=== PATIENT | female | born 1990 | race Caucasian/White ===

== ENCOUNTER 2017-03-10 16:54 | Emergency (ER) | payer BC, OTHER ==
[~2017-03-10] VITALS: Ht 172.7 cm; Wt 61.2 kg
[2017-03-10 17:20] VITALS: BP 123/78
== END 2017-03-10 22:11 | disposition home or self-care (01) ==
LOC: ER 17:08
DX: S80.212A Abrasion, left knee, initial encounter (principal); M25.511 Pain in right shoulder; M25.512 Pain in left shoulder; V49.9XXA Car occupant (driver) (passenger) injured in unspecified traffic accident, initial encounter; Y93.89 Activity, other specified; Y99.8 Other external cause status; Y92.89 Other specified places as the place of occurrence of the external cause